=== PATIENT | female | born 1990 | race Caucasian/White ===

== ENCOUNTER 2018-10-27 10:34 | Emergency (ER) | payer OTHER ==
[2018-10-27 10:44] VITALS: BP 144/92; TEMP 97.8; BMI 37.0
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
== END 2018-10-27 12:38 | disposition home or self-care (01) ==
LOC: ED 10:34
DX: S16.1XXA Strain of muscle, fascia and tendon at neck level, initial encounter (principal); R07.89 Other chest pain; M25.512 Pain in left shoulder; K76.0 Fatty (change of) liver, not elsewhere classified; V89.2XXA Person injured in unspecified motor-vehicle accident, traffic, initial encounter
CPT/HCPCS: 99283

== ENCOUNTER 2018-12-15 20:01 | Inpatient (IN) ==
[2018-12-15 20:07] VITALS: BMI 36.8
[2018-12-15] MEDS ORDERED: SOLU-MEDROL 125 MG IVP STA (20:28)
--- NOTE | 2018-12-15 20:41 | ED.PDOC ---
General ED Provider: Dr. BINU PHILLIPS Chief Complaint: Sore Throat Stated Complaint: Sorethroat for few days. worse today. Left ear ache and neck swelling. Difficulty swallowing. Time Seen by Physician: 20:10 Mode of Arrival: Walk-In Information Source: Patient Nursing and Triage Documentation Reviewed and Agree: Yes Does patient meet sepsis criteria?: No System Inflammatory Response Syndrome: Not Applicable Sepsis Protocol: For patient's 13 years and over: Temp is 96.8 and below OR 101 and greater Pulse >90 BPM Resp >20/minute Acutely Altered Mental Status Are patient's symptoms suggestive of a new infection, such as: -Pneumonia -Skin, Soft Tissue -Endocarditis -UTI -Bone, Joint Infection -Implantable Device -Acute Abdominal Infection -Wound Infection -Meningitis -Blood Stream Catheter Infection -Unknown EENT Complaint Exam - Throat Complaint/Exam Onset/Duration: 5 days Symptoms Are: Still present Timimg: Constant Initial Severity: Mild Current Severity: Moderate Aggravating: Reports: Eating Associated Signs and Symptoms: Reports: Fever, Dysphagia, Chills. Denies: Drooling, Foreign body sensation, Cough, Wheezing, Hoarseness, Sinus discomfort , Nasal congestion, Difficulty breathing, Lethargy, Irritability, Decreased activity, Vomiting, Diarrhea, Decreased hearing, Ear drainage Related History: Denies: Similar Episode Uvula Midline: Yes Argelia-tonsillar Fluctuence: No Scarlatinaform Rash Present: No Lesions: Absent: Lip, Gums, Tongue, Buccal Mucosa Exanthem: Absent: Lip, Gums, Tongue, Buccal Mucosa Vesicles: Absent: Lip, Gums, Tongue, Buccal Mucosa, Pharynx Stridor Present: No Sinus Tenderness Present: No Tonsillar Hypertrophy Present: Yes Tonsillar Exudate Present: No Argelia-tonsillar Swelling Present: Yes Adenopathy Present: Yes Splenomegaly Present: No Differential Diagnoses: Laryngitis, Pharyngitis, Tonsillitis Review of Systems - Review Of Systems Constitutional: Reports: Fever Eyes: Reports: No symptoms Ears, Nose, Mouth, Throat: Reports: Ear pain, Throat pain Respiratory: Reports: No symptoms Cardiac: Reports: No symptoms GI: Reports: No symptoms : Reports: No symptoms Musculoskeletal: Reports: No symptoms Skin: Reports: No symptoms Neurological: Reports: No symptoms Endocrine: Reports: No symptoms Hematologic/Lymphatic: Reports: No symptoms All Other Systems: Reviewed and Negative Past Medical History - Past Medical History Previously Healthy: Yes Endocrine: Reports: None Cardiovascular: Reports: None Respiratory: Reports: None Hematological: Reports: None Gastrointestinal: Reports: None Genitourinary: Reports: None Neuro/Psych: Reports: None Musculoskeletal: Reports: None Cancer: Reports: None Last Menstrual Period: 12/15/18 Other Pertinent Past Medical History: Obesity - Surgical History General Surgical History: Reports: None - Family History Family History: Reports: Diabetes - Social History Smoking Status: Never smoker Hx Substance Use: No Alcohol Screening: None - Immunizations Tetanus Shot up to Date: Yes Physical Exam - Physical Exam Appearance: Ill-appearing, Obese Ill-appearing: Moderate Pain Distress: Moderate ENT: Ears normal, Nose normal, Erythema (uvular midline) Neck: Nonsupple (Left neck pain with lymphadenopathy) Respiratory: Airway patent, Breath sounds clear, Breath sounds equal, Respirations nonlabored Cardiovascular: RRR, Pulses normal, No rub, No murmur Musculoskeletal: Normal strength, ROM intact, No edema Skin: Warm Neurological: Sensation intact, Motor intact, Cranial nerves intact, Alert, Oriented Psychiatric: Anxious Interpretation - Radiology Interpretation Radiology Interpretation By: Radiologist Radiology Results: Positive (Tonsilar Swelling mostly on the left) Exam Interpreted: CT Scan Re-Evaluation - Re-Evaluation Time of Re-Evaluation: 23:40 Status: Improved Vital Signs Stable: Yes Pain Level: much improved able to open month. Still no stridor Appearance: NAD Lungs: Clear Skin: Warm and Dry Neuro: Alert and Oriented X3 CV: RRR Physician Notification - Case Discussed Physician Notified: Dr Diaz Time of Notification: 23:00 (accepted patient for admission, ) Critical Care Note - Critical Care Note Total Time (mins): 45 Course - Course Hematology/Chemistry: 12/15/18 20:48 12/15/18 20:48 Vital Signs: Temp Pulse Resp BP Pulse Ox 12/15/18 20:01 100.6 F H 100 H 20 136/94 H 98 Departure - Departure Time of Disposition: 23:55 Disposition: ADMITTED INPATIENT Discharge Problem: Streptococcal sore throat, Newly diagnosed diabetes Condition: Stable Pt referred to PMD for follow-up: Yes IPMP verified?: No Allergies/Adverse Reactions: Allergies adhesive Adverse Reaction (Verified 12/15/18 20:05) Home Medications: Ambulatory Orders 1 [No Reported Medications] 10/27/18 Disposition Discussed With: Patient, Family
[2018-12-15] MEDS ORDERED: ZOSYN 3.375 GM 3.375 GM in SODIUM CHLORIDE 50 ML IV STA (21:06)
[2018-12-15] MEDS ORDERED: SODIUM CHLORIDE 1,000 ML IV STA (21:48)
[2018-12-15] MEDS ORDERED: HUMULIN R SUBCUT STA (21:48)
--- NOTE | 2018-12-15 22:03 | CT ---
Exam: CT of the neck with contrast History: Left neck swelling Technique: [address] of the neck following intravenous contrast FINDINGS: Swelling of the pontine tonsils greater on the left. Low-density change centrally in the left palatine tonsil measures 1.1 x 1.3 cm without rim enhancement. Tonsillar swelling of the school commissioner ior nasopharynx. The epiglottis is normal. The trachea is normal. Normal cervical esophagus and pr evertebral soft tissues. Parapharyngeal fat shows some inflammatory stranding on the left. Reactive lymph nodes bilaterally with maximum diameter on the left measuring 1.4 cm short axis. Normal subma ndibular and parotid glands. Normal thyroid. Lung apices are clear. No acute findings of the skele ton. Impression: 1. Tonsillar swelling greatest on the left. There is central low density in the left palatine tonsi l suggesting necrosis without rim enhancing abscess. Left parapharyngeal inflammation is present.
[2018-12-15] MEDS ORDERED: TYLENOL PO PRN (23:34)
[2018-12-15] MEDS ORDERED: MORPHINE 2 MG/ML SYRINGE IVP PRN (23:34)
[2018-12-15] MEDS ORDERED: ZOFRAN 4 MG/2 ML IVP PRN (23:34)
--- NOTE | 2018-12-15 23:47 | PCM ---
- Chief Complaint Chief Complaint: Sore throat 2-3 days worsening, left earache, neck swelling, difficulty swallowing. Hyperglycemia, new onset diabetes. - History of Present Illness History of Present Illness: 28 yo female walked into ER 20:10 12/15/18 with sore throat, fever, left ear ache , neck swelling, trouble swallowing. Febrile temp 100.6, pulse 100, rr 20, BP 136/94 supports SIRS and oropharyngeal infection supports Sepsis. Labs showed WBC 20.49, hgb 14.2, hct 42.7. Sodium 135.6, K+ 3.87, CL 98.1, c02 28.1. BUN 4.5 , cr 0.40 with glucose 300.5. ER note suggested patient did not meet SIRS/ Sepsis. Ear throat pain, strep was + in ER. PMHx polydipsia, polyphagia, polyuria. Never smoker. CT of the soft tissues of the neck suggested swelling of the pontin tonsils L>R. Low density changes centrally within the left palatine tonsils 1.1x1.3cm w/o rim enhancement. Tonsillar swelling fo the posterior nasopharynx. Epiglottis normal, trachea normal. Normal prevertebral soft tissues. Parapharyngeal fat shows stranding on left. reactive LN L>>R. normal parotid glands. Dr. Betancur contacted me at 23:20 and discussed the case with me. I asked about midline uvula was informed difficulty opening mouth, swelling, no stridor. I asked about parapharyngeal abscess/james and asked for opinon. I asked about the glucose, asked what the a1c was and was informed that the patient a1c was 10.96, glucose 300.5, negative. New onset diabetes. I asked more about the neck swelling as DM is most common predisposing factor for abscess. CT today did not show an air or fluid filled center. NO enhancement, no current evidence of abscess, but does have e/o cellulitic/infectious process. I discussed necrotizing fascitis, cellulitis as still possible. With strep + status Necrotizing facitis is concerning. I asked about platysma and was told there is some neck swelling. Again there are no current abscesses nor presence of gas within soft tissues. May re-image in 6- 12 hours if needed. Gas presence would suggest necrotizing fascitis. I asked about swelling and it was more invovled with the LN than the actual neck musculature and not along SCM (bezold). Ct did not support any mastoid/middle ear involvement nor of the musculature. She was given zosyn as well as NS 1000 cc bolus and 7 units of insulin. She was then set up to have lovenox 40subuct, rocephin 1 Gram daily, ms sulfate 2mg q 4hours, accucheck 0630,1100,1700,2100. I have added cpeptide, SHANA abs and insulin for am. PResented unable to open mouth. Steroids/abx did help her to open mouth and to talk. Boyfriend dale has garbled voice, tonsillar hypertrophy and pain as well. He has been gargling everclear due to the pain. Noted he probably had strep too. Patient tested +. She has swelling along the left side of the jaw. I have discussed with her at length that clinically and radiographically I was concerned about abscess/cellulitis. Blood cultures were collected. - Review of Systems Constitutional: fever, weakness, fatigue, loss of appetite. No: chills, sweats , other Eyes: No: blurred vision, double-vision, discharge, itching, pain, redness, photophobia, other Ears: pain. No: bleeding, drainage, ringing, hearing loss, other Nose: No: bleeding, congestion, discharge, other Throat: pain, swelling, voice change Mouth: pain, swelling. No: bleeding, other Respiratory: No: cough, shortness of air, wheeze, hemoptysis, pain with breathing, other Cardiovascular: No: chest pain, left arm pain, diaphoresis, PND, orthopnea, edema, palpitations, syncope, other Gastrointestinal: No: abdominal pain, other, nausea, vomiting, diarrhea, melena , hematemesis, hematochezia, dysphagia, constipation Genitourinary: dysuria, frequency. No: hematuria, incontinence, flank pain, vaginal discharge, abnormal bleeding, pelvic pain, other Neurological: headache, speech difficulty. No: other, dizziness, seizure, numbness, weakness, problems with walking, tremor, fainting Musculoskeletal: No: pain, swelling in joints, other Skin: No: rash, pruritus, lacerations, wounds, bruising, other Immunology: No: itching, frequent infections Hematology: No: easy bruising, easy bleeding Endocrine: weight changes, excessive thirst, excessive hunger, polyuria - Past Medical History Past Medical History: control. . Healthy, no reported illness. Obesity BMI 36.8. - Past Surgical History Past Surgical History: None - Allergies Allergies/Adverse Reactions: Allergies Allergy/AdvReac Type Severity Reaction Status Date / Time adhesive AdvReac Verified 12/15/18 20:05 - Medications Medications: Medications Generic Name Dose Route Start Last Admin Trade Name Freq PRN Reason Stop Dose Admin Acetaminophen 650 mg 12/15/18 23:34 Tylenol PO Q4H PRN Fever > 102 Enoxaparin Sodium 40 mg 12/16/18 09:00 Lovenox SUBCUT DAILY NABEEL Ceftriaxone Sodium 1 gm/ 50 mls @ 75 mls/hr 12/16/18 09:00 Sodium Chloride IV 12/19/18 08:59 DAILY [facility] Insulin Human Regular 0 - 8 unit 12/15/18 23:34 Humulin R SUBCUT PRN PRN Hyperglycemia Protocol Morphine Sulfate 2 mg 12/15/18 23:34 Morphine 2 Mg/Ml Syringe IVP Q4H PRN Severe Pain Ondansetron HCl 4 mg 12/15/18 23:34 Zofran 4 Mg/2 Ml IVP Q6H PRN Nausea / Vomiting Sodium Chloride 1 syr 12/15/18 20:36 12/15/18 22:18 Saline Flush IVF 1 syr PRN PRN Administration To flush IV - Family History Past Family History: Mother DM, HTN father. Brother lives in [place]. No children. [place] ancestry. - Social History Past Social History: Lives with boyfriend dale. Geoff IUD. LMP 1 month ago. No tobacco, no drugs, no ETOH. Works as craft manager. - Body Composition Height: 5 ft 1 in Weight: 195 lb Body Mass Index (BMI): 36.8 - Physical Examination HEENT: Constitutional: Appearance-Mild distress pain present, limited opening of mouth , Consistent with stated age. Orientation- Oriented x 3, alertGait-Normal pace, normal arm movement. Build and Nutrition-[obese female] General- Patient is pleasant and cooperative with the interview and exam. Integumentary: General-No rashes, ulcers or lesions. Palpation- Normal skin moisture/turgor. Skin is warm to touch, appropriate. Capillary refill is normal bilateral Upper and lower extremity. Head/Neck: Head- normocephalic and atraumatic. Neck- with visible/palpable lumps lateral neck, along superior SCM, along lower angle of jaw within the anterior zone 2 space of the neck. Tender anterior cervical LN on left. Palpation- No bony tenderness about head/neck along frontal, occipital, temporal , parietal, mastoid, jawline, zygoma, orbit or any other location. NO temporal artery tenderness. No TMJ tenderness. Neck Supple. NO trismus. Able to open mouth. Thyroid-No thyromegaly, no nodules Malampati IV. Tongue blade to see the posterior pharynx. Uvula deviated to the right. Peritonsillar erythema, palatine arch erythema, edema L>R, migration of left toward right. Patient noted markedly better by the time I saw her. NO trismus on examination. Concern for parapharyngeal vs peritonsillar abscses. Pain is reduced Tender LN along left anterior neck. Eye: Bilaterally PERRLA, EOMI. No discharge. Upper and lower eyelids are normal. Sclera/conjunctiva normal without discharge. Cornea is normal and clear. Lens is normal. Eyeball appears normal. No ciliary flushing, no conjunctival injection. ENMT: Pinna- normal without tenderness or erythema. External auditory canal Left- normal without erythema or discharge, no excessive cerumen. External auditory canal Right-normal without erythema or discharge, no excessive cerumen. TM left- Forte/pearly, normal light reflex and anatomy TM Right- Forte/ pearly, normal light reflex and anatomy Hearing Assessment-normal to conversational speech. Nose and sinus- No sinus tenderness along frontal/ maxillary region. External appearance normal and midline. Nares- bilateral quiet airflow, no discharge. Nasal mucosa- No bleeding noted and no ulcerations observed. [place], moist. Turbinates non boggy. Lips- normal color, moist without cracks/lesions Oral Cavity/Palate- hard/soft palate intact without lesions, oral mucosa pink and moist. Dentition assessed avg, no obvious concerns, Tongue normal midline. Oropharynx- pharyngeal erythema, Uvula not midline, displaced rightward, No post nasal drip. + tonsilar exudate. Salivary glands- Non tender to palpation Parotid normal. Parotid ducts normal. CHEST/LUNG: Inspection- symmetric chest wall no pectus deformity. Normal effort , no distress, no use of accessory muscles. Palpation- nontender sternum, ribline. No abnormal pulsations. Auscultation- Breath sounds normal throughout all lung buckley. Normal tracheal sounds, Normal bronchial sounds overlying sternum, Bronchovessicular sounds normal between scapulae posteriorly, Normal vessicular breath sounds heard throughout periphery. Lungs are clear today. Adventitious sounds- No wheezes, rales, rhonchi. CARDIOVASCULAR: Carotid artery- normal, no bruits or abnormal pulsations. Jugular vein- no pulsations. Palpation/Percussion- Normal PMI, no palpable thrill Auscultation- Regular rate and rhythm. No murmur noted in sitting, supine positions. Extremities- no digital clubbing, cyanosis, edema, increased warmth. ABDOMEN: Inspection- normal and no visible pulsations. Normal contour. Auscultation- Bowel sounds normal, no abdominal bruits. Palpation/Percussion- soft, non-tender, no rebound tenderness, no rigidity (guarding), no jar tenderness, no masses. Liver-no hepatomegaly, Spleen no splenomegaly, Hernias - none. Rectal not examined. Peripheral Vascular: Upper extremity Left- Normal temperature with pink nailbeds and no ulcerations. Upper extremity Right- Normal temperature with pink nailbeds and no ulcerations. Lower extremity- Normal temperature with pink nailbeds and no ulcerations. DP pulses 2+ bilaterally. Pedal hair intact. Normal capillary refill. Edema- No edema. Musculoskeletal: Generalized-No generalized swelling or edema of extremities, no digital clubbing or cyanosis, neurovascularly intact all four extremities. Upper extremity- Symmetrical posture. No visible deformity. Normal sensation along medial and lateral upper extremity proximally and distally. NO tenderness overlying shoulder, lateral/medial epicondyle. [employer] 5/5 and strength 5/5 bilateral UE. Elbow palpated, no tenderness overlying olecranon. Normal supination, pronation to active/passive ROM and to resisted rotation. Bicep insertion/tricep insertion appear normal without obvious pathology. Rotator cuff evaluated and intact. Normal wrist ROM bilaterally. Normal hand movement, intrinsic muscles of hands normal. No tenderness to palpation of hands/wrists/ elbows. Lower extremity- Hip: Not tender to palpation, no pain, no swelling, edema or erythema of surrounding tissue, normal strength and tone. Normal appearing hip ROM bilaterally without pain. Knee: Knee ROM normal. No tenderness overlying trochanters, no tenderness about patella, quad tendon, patellar tendon. No tenderness at tibial tuberosity. Ankle: normal ROM not tender to palpation along medial/lateral malleolus. Foot: Normal movement of toes, no tenderness bilateral feet/toes. Normal foot type. Spine/Ribs- No deformities, masses or tenderness, no known fractures, normal strength, Normal ROM. Normal stability No tenderness along C/T/L spine. Normal appearing ROM about spine. Neurological: General- Moves all 4 extremities symmetrically. Symmetrical face and body posture. Cranial nerves- individually evaluated II-XII and intact. PERRLA, Normal EOMI, visual/special senses appear intact, Face is symmetrical and normal sensation/movement, normal tongue, normal strength/posture of neck musculature. Reflexes- intact with DTR 2+ patellar, Achilles, bicep, brachial, tricep. Ankle clonus normal with 2 beats. Strength- 5/5 bilateral UE and LE. Soft touch- intact bilateral UE and LE. Temperature sensation- intact bilateral UE and LE. Neuropsych: Oriented- Person, place, time. (AAOx3), Mood/affect- normal and congruent. Able to articulate well. Speech-Normal speech, normal rate, normal tone, normal use of language, volume and coherence. Thought content- normal with ability to perform basic computations and apply abstract thought/reason. Associations- intact, no SI/HI, no hallucinations, delusions, obsessions. Judgment/insight- Appropriate. Memory-Recall intact, remote and recent memory intact. Knowledge- Age appropriate fund of knowledge, concentration and attention span normal. Lymphatic: Head/Neck- Left side anterior cervical LN tender to palpation and enlarged, zone 2. Prominetn swelling along level II, III, IV and 1B. . Axillary - normal size and non tender to palpation. Femoral and Inguinal- normal size and non tender to palpation. - Lab/Tests/Diagnostic Imaging Lab/Tests/Diagnostic Imaging: Laboratory Last Values WBC 20.49 K/ul (4.6-10.2) H 12/15/18 20:48 RBC 5.36 10^6/ul (4.20-5.40) 12/15/18 20:48 Hgb 14.2 g/dl (12.0-16.0) 12/15/18 20:48 Hct 42.7 % (37.0-47.0) 12/15/18 20:48 MCV 79.7 fl (81.0-99.0) L 12/15/18 20:48 MCH 26.5 pg (27.0-31.0) L 12/15/18 20:48 MCHC 33.3 (31.8-35.4) 12/15/18 20:48 RDW Coeff of Dejan 12.6 % (11.6-14.8) 12/15/18 20:48 Plt Count 340 10^3/uL (140-440) 12/15/18 20:48 Immature Gran % (Auto) 0.9 % (0.0-5.0) 12/15/18 20:48 Neut % (Auto) 79.8 12/15/18 20:48 Lymph % (Auto) 12.9 (10.0-50.0) 12/15/18 20:48 [place] % (Auto) 4.5 (0-10) 12/15/18 20:48 Eos % (Auto) 1.7 % (0.0-7.0) 12/15/18 20:48 Baso % (Auto) 0.2 % (0.0-3.0) 12/15/18 20:48 Immature Gran # (Auto) 0.2 (0.0-1.0) 12/15/18 20:48 Neut # (Auto) 16.3 K/ul (2.0-6.9) H 12/15/18 20:48 Lymph # (Auto) 2.7 K/uL (0.60-3.4) 12/15/18 20:48 [place] # (Auto) 0.9 K/uL (0.4-2.0) 12/15/18 20:48 Eos # (Auto) 0.4 K/ul (0.0-0.7) 12/15/18 20:48 Baso # (Auto) 0.1 K/uL (0-0.2) 12/15/18 20:48 Sodium 135.6 mmol/L (134.5-145) 12/15/18 20:48 Potassium 3.87 mmol/L (3.5-5.1) 12/15/18 20:48 Chloride 98.1 mmol/L (98-107) 12/15/18 20:48 Carbon Dioxide 28.1 mmol/L (22-30.0) 12/15/18 20:48 Anion Gap 13.27 12/15/18 20:48 BUN 4.5 mg/dL (7-17) L 12/15/18 20:48 Creatinine 0.40 mg/dL (0.60-1.30) L 12/15/18 20:48 Estimated GFR (MDRD) 189.00 mL/min 12/15/18 20:48 BUN/Creatinine Ratio 11.25 12/15/18 20:48 Glucose 300.5 mg/dL (74-106) H 12/15/18 20:48 Hemoglobin A1c 10.96 (4.0-6.0) H 12/15/18 20:45 Calcium 9.18 mg/dL (8.4-10.2) 12/15/18 20:48 Total Bilirubin 0.61 mg/dL (0.2-1.3) 12/15/18 20:48 AST 27.9 U/L (14-36) 12/15/18 20:48 ALT 29.8 U/L (0-35) 12/15/18 20:48 Alkaline Phosphatase 110.5 U/L (38-126) 12/15/18 20:48 Total Protein 9.04 g/dL (6.3-8.2) H 12/15/18 20:48 Albumin 4.25 g/dL (3.5-5.0) 12/15/18 20:48 Globulin 4.79 12/15/18 20:48 Albumin/Globulin Ratio 0.88 12/15/18 20:48 Serum , Qual Negative (NEGATIVE) 12/15/18 20:48 CT scan: Tonsillar swelling greatest on the left. Ther eis central low density in the left palatine tonsil suggesting necrosis without rim enhancing abscess. Left parapharyngeal inflammation is present. Personally called radiology 1am: Image 31 axial:addendum: In anterior aspect of the left palataine tonsil 3.3 x 3.7 mm low density area with rim enhancement which could represent small abscess. Additional finding was discussed with ER physician at 0100 hours 12/16/18. That was actually with hospitalist and not ER provider. Personally discussed case with DR. Betancur ER, Radiology, cement conveyor operator ENT through , transfer line and reviewed images personally/directly. - Plan Plan: Peritonsilar abscess: abscesses are more common in young adults. Average age is 25 yr with >65% of patients being 20-40 yr old. DDX considered include parapharyngeal abscess, Cellulitis, necrotizing fasciitis. No gas, no abscess seen by radiology on contrast enhanced CT. Discussed more serious anterior neck lesions with Er provider James/karma and I was assured that these were not present. I arrived and evaluated patient, noted prominent left sided tonsillar hypertrophy, anterior movement of the tonsil in relation to the right, rightward deviation of the uvula, prominent swelling inferior to the angle of the jaw and was concerned that this was more than was reported. I contacted and talked with cement conveyor operator ENT who asked if patient has ability to open mouth. I noted that she did not when presenting to ER but dose of zosyn and steroid have helped and she can open jaw now. He noted if able to open mouth she did not have abscess and it was not an emergency. Noted I could transfer if desired but it is not an emergency and abx and steroids are what she needs. He told me I was the one evaluating her but an open mouth, open airway are present. He asked about WBC I noted 20. Febrile. I looked at the images personally, noted L>R tonsilar hypertrophy and then called Radiologist to discuss further and requested a review of axial images. It was felt that there was an abscess on image 31 ~3mm rim enhancing lesion c/w abscess. Addendum was made to the report noting that he had talked with ER doctor, but that should have read hospitalist and not ER doctor. I had a long discussion with patient william and with boyfriend william, who also has s/sx of strep about the options that were available. Option 1 wait 6-12 hours and assess system/severity/problems. She noted she was feeling better, throat pain improving, swelling improving, able to open mouth now, which was not present at time of presentation. She liked this option. Option 2 was transfer to facility with ENT for further evaluation. She noted that if it worsens she wants to do that. called back to ask me about the transfer. I discussed with them the above and patient wishes to remain here. Febrile tonsillar hypertrophy with peritonsilar abscess. She has no prevertebral space process. - Admit inpatient status. - Vitals q shift - Rocephin 1 gram daily - Change to augmentin when able - CBC/CMP in am. - Monitor 6-12 hours for changes. - unasyn 3g IV q 6 hours start at 0600. Strep Positive: Will treat with unasyn q 6 hours. D/C rocephin. Await cultures. Consider augmentin 875-125 BID at discharge. New Onset diabetes: A1C >10.0. I will check C-peptide, [id number], Insulin in am. She is on steroids. 7 units given in ER. She was then given 0-8 units humulin regular correctional. Will see how many units she needs over next 24 hours. I will start lantus 10 and likely try to add steglatro and metformin for her and then back down the lantus. I want to see about ?HORTENSIA first, however. - CMp.CBC in am. - Correctional insulin. - Lantus 10units to be given. - C-peptide in am - INsulin level in am - Add potassium to fluids. - Keep K+ at goal 4-5. BMI 36.8: Discussed the federal guidelines suggest a healthy goal BMI of 18.5- 24.9 for people 18-65 and 23-30 for people age 65 and older. Overweight is considered BMI 25-30, Obesity 30-40 and Morbid obesity is defined as >100 lb overweight or BMI >40. With a BMI above goal, it is recommended to utilize a diet/exercise program to get back into the appropriate range. Consider referral to data processing auditor. For BMI >40 consider referral to bariatrics. If not already monitoring intake. I would recommend at least to keep a food diary. Document everything that is consumed into a food diary. Studies have shown that patients can lose up to 2x the weight by keeping track of foods. Offered handout on weight loss techniques. Apps that may be of benefit include [employer], Lose it. Regular exercise encouraged. Start with walking 5-10 minutes at a pace that is difficult to carry a conversation. If chest pain/SOA stop and f/u in office. DVT prophy: Hold lovenox for now in case abscess worsens and surgery becomes option. -MARC/SCD for now. Diet: NPO for now in case surgery becomes an option. Maintenance 120-140 ml. - Will use 120ml NS + 10meq K+Cl- Disposition: Admission for patient 23:40-01:35. Talked with ER doctor x 2 personally, Radiologist personally and had Report addended with information about image 31 axial that demonstrated the left palatine tonsil rim enhancing lesion that may be an abscess. Talked with cement conveyor operator ENT through . Talked with transfer line again. Talked with boyfriend Dale who is likely currently sick with strep. He will actually see me in clinic in 7 hours. The patient has decided to stay at [facility] for now. Will reassess 6-8am with rounding. Prolonged evaluation, numerous discussions with providers as listed above [id number].
[2018-12-16] MEDS: HUMULIN R SUBCUT PRN ×5 (01:13→20:42)
[2018-12-16] MEDS ORDERED: LANTUS SUBCUT STA (01:32)
[2018-12-16] MEDS ORDERED: POTASSIUM CHLORIDE 10 MEQ VIAL 10 MEQ in SODIUM CHLORIDE 1,000 ML IV SCH (02:00)
[2018-12-16] MEDS ORDERED: POTASSIUM CHLORIDE 10 MEQ VIAL IV ONE ×3 (02:10→23:24)
[2018-12-16] MEDS: POTASSIUM CHLORIDE 10 MEQ VIAL 10 MEQ in SODIUM CHLORIDE 1,000 ML IV SCH ×3 (02:17→23:26)
[2018-12-16] MEDS ORDERED: AMPICILLIN SODIUM ONE (05:49)
[2018-12-16] MEDS: UNASYN 3 GM in SODIUM CHLORIDE 100 ML IV SCH ×4 (06:12→23:30)
[2018-12-16] MEDS ORDERED: ROCEPHIN 1 GM in SODIUM CHLORIDE 50 ML IV SCH (09:00)
[2018-12-16] MEDS ORDERED: LOVENOX SUBCUT SCH (09:00)
--- NOTE | 2018-12-16 20:31 | PCM.PROG ---
Subjective: 28 yo WF HD #2 admitted with new onset diabetes, Strep + tonsillar hypertrophy and left sided tonsillar abscess. Patient is now on unasyn q 6 hours today is day 08/07 for antibiotics. Will plan to d/c her 12/17/18 with augmentin 875/125 po BID x 10 days. She had WBC reduced from 20.49 to 18.52. She had normal hgb 13.9, mcv is low at 79.5, RDW is normal. Plt are normal at 327. Chem panel this am showed normal sodium 138.2, normal cl 101.2, k+ 4.13, BUN 5.6, Cr 0.30. Glucose 333.1. Calcium 8.81. A1C returned 10.96. Temp since admit has been afebrile 97.6-98.2. Pulse 70-86. BP has been stable at 119/85, 123/85, 130/82, 114/82. RR 16-20. O2 98-100% on RA. NPO status, I held lovenox just in case. She had SR/ST on telemetry. Talked with overnight nurse and she has been doing okay. She has had several voids, no output recorded. According to the I+O she has had 9 voids in 24 hours. Accucheck for 12/16/18 265, 331,193, 212, 231. I rounded on her at 8 am, 12pm and 1900 today. I allowed her to eat lunch and dinner and she consumed 75% of each. Monitor accuchecks. Today she has had 12/03/ /4/4 units at 01:13, 06:09, 12:23, 17:50 and 20:42. I will stop the steroids for now. Continue Unasyn 3Gram Q6. REVIEW OF SYMPTOMS: (Positives bolded) General: weight loss, fever (resolved), chills, night sweats, fatigue, appetite loss (better) HEENT: blurry vision, eye pain, eye discharge, dry eyes, decreased vision, sore throat tinnitus, bloody nose, hearing loss, sinus pain/pressure, ear pain/ pressure. Respiratory: shortness of breath, cough, hemoptysis, wheezing, pleurisy, Cardiovascular: chest pain, PND, palpitation, edema, orthopnea, syncope, swelling of extremities Gastro: Nausea, vomiting, diarrhea, hematemesis, abdominal pain, constipation Genito: hematuria, dysuria, glycosuria, hesitancy, frequency, incontinence [place]: Arthralgia, myalgia, muscle weakness, joint swelling, NSAID use Skin: rash, pruritis, sores, nail changes, skin thickening, change in wart/mole , itching, rash, new lesions, pruritus, nail changes Neuro: Migraine, numbness, ataxia, tremor, vertigo, weakness, memory loss, Irritability, dizziness Endocrine: excessive thirst, polyuria, cold intolerance, heat intolerance, goiter Psychiatric: depression, anxiety, anti-depressants, alcohol abuse, drug abuse, insomnia, change in sleep pattern and mood changes Heme/lymph: easy bruising, bleeding gums, blood clots, swollen glands, lymphedema, Allergic/immune: allergic rhinitis, hay fever, asthma, hives Objective: Vital Signs - 24 hr 12/16/18 12/16/18 12/16/18 00:07 02:00 05:34 Temperature 98.2 F 97.6 F 98 F Pulse Rate 85 80 87 Respiratory 16 18 18 Rate Blood Pressure 119/85 123/85 O2 Sat by Pulse 97 98 99 Oximetry 12/16/18 14:00 Temperature 98 F Pulse Rate 70 Respiratory 20 Rate Blood Pressure 130/82 O2 Sat by Pulse 100 Oximetry Constitutional: Appearance-NO distress, pain present but improving, limited opening of mouth persists, Consistent with stated age. Orientation- Oriented x 3 , alert. Asleep on entry, easily awoken. Boyfriend dale in room. Build and Nutrition-[obese female] General- Patient is pleasant and cooperative with the interview and exam. Integumentary: General-No rashes, ulcers or lesions. Palpation- Normal skin moisture/turgor. Skin is warm to touch, appropriate. Capillary refill is normal bilateral Upper and lower extremity. Head/Neck: Neck- with visible/palpable lumps lateral neck, along superior SCM, along lower angle of jaw within the anterior zone 2 space of the neck. Tender anterior cervical LN on left. This has not expanded. She appears to be healing/ resolving. Palpation- No bony tenderness about head/neck along frontal, occipital, temporal, parietal, mastoid, jawline, zygoma, orbit or any other location. NO temporal artery tenderness. No TMJ tenderness. Neck Supple. NO trismus. Able to open mouth more today. Thyroid-No thyromegaly, no nodules Malampati IV. Tongue depressor needed to see the posterior pharynx. Uvula deviated to the right. Peritonsillar erythema, palatine arch erythema, edema L>R , migration of left toward right. Patient noted markedly better by the time I saw her. NO trismus on examination. Concern for parapharyngeal vs peritonsillar abscess. Pain is reduced now not having Tender LN along left anterior neck. ENMT: Nares- bilateral quiet airflow, no discharge. Nasal mucosa- No bleeding noted and no ulcerations observed. [place], moist. Turbinates non boggy. Lips- normal color, moist without cracks/lesions Oral Cavity/Palate- hard/soft palate intact without lesions, oral mucosa pink and moist. Dentition assessed avg, no obvious concerns, Tongue normal midline. Oropharynx- pharyngeal erythema persists, Uvula not midline, displaced rightward, No post nasal drip. + tonsilar exudate. Salivary glands- Non tender to palpation Parotid normal. Parotid ducts normal. CHEST/LUNG: Inspection- symmetric chest wall no pectus deformity. Normal effort , no distress, no use of accessory muscles. Palpation- nontender sternum, ribline. No abnormal pulsations. Auscultation- Breath sounds normal throughout all lung buckley. Normal tracheal sounds, Normal bronchial sounds overlying sternum, Bronchovessicular sounds normal between scapulae posteriorly, Normal vessicular breath sounds heard throughout periphery. Lungs are clear today. Adventitious sounds- No wheezes, rales, rhonchi. CARDIOVASCULAR: Palpation/Percussion- Normal PMI, no palpable thrill Auscultation- Regular rate and rhythm. No murmur noted in sitting, supine positions. Extremities- no digital clubbing, cyanosis, edema, increased warmth. ABDOMEN: Inspection- normal and no visible pulsations. Normal contour. Auscultation- Bowel sounds normal, no abdominal bruits. Palpation/Percussion- soft, non-tender, no rebound tenderness, no rigidity (guarding), no jar tenderness, no masses. Peripheral Vascular: Upper extremity Left- Normal temperature with pink nailbeds and no ulcerations. Upper extremity Right- Normal temperature with pink nailbeds and no ulcerations. Lower extremity- Normal temperature with pink nailbeds and no ulcerations. DP pulses 2+ bilaterally. Pedal hair intact. Normal capillary refill. Edema- No edema. Musculoskeletal: Generalized-No generalized swelling or edema of extremities, no digital clubbing or cyanosis, neurovascularly intact all four extremities. Neurological: General- Moves all 4 extremities symmetrically. Symmetrical face and body posture. Cranial nerves- individually evaluated II-XII and intact. PERRLA, Normal EOMI, visual/special senses appear intact, Face is symmetrical and normal sensation/movement, normal tongue, normal strength/posture of neck musculature. Neuropsych: Oriented- Person, place, time. (AAOx3), Mood/affect- normal and congruent. Able to articulate well. Speech-Normal speech, normal rate, normal tone, normal use of language, volume and coherence. Thought content- normal with ability to perform basic computations and apply abstract thought/reason. Associations- intact, no SI/HI, no hallucinations, delusions, obsessions. Judgment/insight- Appropriate. Memory-Recall intact, remote and recent memory intact. Knowledge- Age appropriate fund of knowledge, concentration and attention span normal. Lymphatic: Head/Neck- Left side anterior cervical LN tender to palpation and enlarged, zone 2. Prominetn swelling along level II, III, IV and 1B. . Axillary - normal size and non tender to palpation. Femoral and Inguinal- normal size and non tender to palpation. Laboratory Last Values WBC 18.52 K/ul (4.6-10.2) H 12/16/18 05:10 RBC 5.17 10^6/ul (4.20-5.40) 12/16/18 05:10 Hgb 13.9 g/dl (12.0-16.0) 12/16/18 05:10 Hct 41.1 % (37.0-47.0) 12/16/18 05:10 MCV 79.5 fl (81.0-99.0) L 12/16/18 05:10 MCH 26.9 pg (27.0-31.0) L 12/16/18 05:10 MCHC 33.8 (31.8-35.4) 12/16/18 05:10 RDW Coeff of Dejan 12.5 % (11.6-14.8) 12/16/18 05:10 Plt Count 327 10^3/uL (140-440) 12/16/18 05:10 Immature Gran % (Auto) 1.1 % (0.0-5.0) 12/16/18 05:10 Neut % (Auto) 91.0 12/16/18 05:10 Lymph % (Auto) 7.2 (10.0-50.0) L 12/16/18 05:10 [place] % (Auto) 0.5 (0-10) 12/16/18 05:10 Eos % (Auto) 0.0 % (0.0-7.0) 12/16/18 05:10 Baso % (Auto) 0.2 % (0.0-3.0) 12/16/18 05:10 Immature Gran # (Auto) 0.2 (0.0-1.0) 12/16/18 05:10 Neut # (Auto) 16.9 K/ul (2.0-6.9) H 12/16/18 05:10 Lymph # (Auto) 1.3 K/uL (0.60-3.4) 12/16/18 05:10 [place] # (Auto) 0.1 K/uL (0.4-2.0) L 12/16/18 05:10 Eos # (Auto) 0.0 K/ul (0.0-0.7) 12/16/18 05:10 Baso # (Auto) 0.0 K/uL (0-0.2) 12/16/18 05:10 Sodium 138.2 mmol/L (134.5-145) 12/16/18 05:10 Potassium 4.13 mmol/L (3.5-5.1) 12/16/18 05:10 Chloride 101.2 mmol/L (98-107) 12/16/18 05:10 Carbon Dioxide 24.7 mmol/L (22-30.0) 12/16/18 05:10 Anion Gap 16.43 12/16/18 05:10 BUN 5.6 mg/dL (7-17) L 12/16/18 05:10 Creatinine 0.30 mg/dL (0.60-1.30) L 12/16/18 05:10 Estimated GFR (MDRD) 263.00 mL/min 12/16/18 05:10 BUN/Creatinine Ratio 18.66 12/16/18 05:10 Glucose 333.1 mg/dL (74-106) H 12/16/18 05:10 Hemoglobin A1c 10.96 (4.0-6.0) H 12/15/18 20:45 Calcium 8.81 mg/dL (8.4-10.2) 12/16/18 05:10 Total Bilirubin 0.61 mg/dL (0.2-1.3) 12/15/18 20:48 AST 27.9 U/L (14-36) 12/15/18 20:48 ALT 29.8 U/L (0-35) 12/15/18 20:48 Alkaline Phosphatase 110.5 U/L (38-126) 12/15/18 20:48 Total Protein 9.04 g/dL (6.3-8.2) H 12/15/18 20:48 Albumin 4.25 g/dL (3.5-5.0) 12/15/18 20:48 Globulin 4.79 12/15/18 20:48 Albumin/Globulin Ratio 0.88 12/15/18 20:48 Serum , Qual Negative (NEGATIVE) 12/15/18 20:48 (1) Peritonsillar abscess Status: Acute Code(s): J36 - PERITONSILLAR ABSCESS SNOMED Code(s): 80061239 (2) Newly diagnosed diabetes Status: Acute Code(s): E11.9 - TYPE 2 DIABETES MELLITUS WITHOUT COMPLICATIONS SNOMED Code(s): 650689281 (3) Streptococcal sore throat Status: Acute Code(s): J02.0 - STREPTOCOCCAL PHARYNGITIS SNOMED Code(s): 53543355 (4) BMI 36.0-36.9,adult Status: Acute Code(s): Z68.36 - BODY MASS INDEX (BMI) 36.0-36.9, ADULT SNOMED Code(s): 575296289 Plan: Peritonsilar abscess: Doing well on Unasyn. pain is improving, less erythema and edema about posterior pharynx. She was feeling better, throat pain improving , swelling improving, able to open mouth now, eating and tolerating PO. She is able to drink. No trismus, no sniffing, no tripod, swelling is improving. - Admit inpatient status plan d/c 12/17/18. - Vitals q shift - Unasyn to continue today, Change to augmentin when able - CBC/CMP in am. - Monitor 6-12 hours for changes. - unasyn 3g IV q 6 hours start at 0600. Strep Positive: Will treat with unasyn q 6 hours. D/C rocephin. Await cultures. Change to augmentin 875-125 BID at discharge. New Onset diabetes: A1C >10.0. I have checked C-peptide, [id number], Insulin and pending. Steroids have been stopped. She was then given 0-8 units humulin regular correctional. Will see how many units she needs over next 24 hours. I will start lantus 10 and likely try to add steglatro and metformin for her and then back down the lantus. I will d/c her on 15 units of lantus, steglatro 5 and start to advance metformin. R/B/A to insulin d/w patient/boyfriend today. Her mother has DM and she is aware of need for insulin. We will work on showing her the pen tomorrow. Continue insulin lantus 10 units and regular insulin for correction. - CMp.CBC in am. - Correctional insulin. - Lantus 10units to be given daily - C-peptide in am - INsulin level in am - Keep K+ at goal 4-5. BMI 36.8: Discussed the federal guidelines suggest a healthy goal BMI of 18.5- 24.9 for people 18-65 and 23-30 for people age 65 and older. Overweight is considered BMI 25-30, Obesity 30-40 and Morbid obesity is defined as >100 lb overweight or BMI >40. With a BMI above goal, it is recommended to utilize a diet/exercise program to get back into the appropriate range. Consider referral to nursing associate. For BMI >40 consider referral to bariatrics. If not already monitoring intake. I would recommend at least to keep a food diary. Document everything that is consumed into a food diary. Studies have shown that patients can lose up to 2x the weight by keeping track of foods. Offered handout on weight loss techniques. Apps that may be of benefit include [employer], Lose it. Regular exercise encouraged. Start with walking 5-10 minutes at a pace that is difficult to carry a conversation. If chest pain/SOA stop and f/u in office. DVT prophy: MARC/SCD for now. Diet: Diabetic ADA 1800 kcal diet. - Continue Will use 120ml NS + 10meq K+Cl- Disposition: Rounding today 35 minutes in discussion of the abscess as well as insulin/diabetes. Reviewed labs with her, reviewed the overnight tele, reviewed plan. Reassessed her at lunchtime and after clinic today and she continued to improve throughout the day. She wants to d/c home tomorrow as she works tomorrow 2 pm. I discussed this should be reasonable. Plan to d/c her on augmentin 875/125 PO BID. She agreed with plan. D/C on 15 units lantus, steglatro 5mg and metformn start 500 QHS x 1 week. F/U with me in office in 1 week. I gave her and boyfriend a business card.
[2018-12-17] MEDS: UNASYN 3 GM in SODIUM CHLORIDE 100 ML IV SCH (05:05)
[2018-12-17 05:10] VITALS: BP 120/83; TEMP 97.9
[2018-12-17] MEDS: HUMULIN R SUBCUT PRN (06:07)
[2018-12-17] MEDS ORDERED: PNEUMOVAX 23 IM ONE (07:48)
--- NOTE | 2018-12-17 08:08 | PCM.DC ---
Final Diagnosis: Peritonsillar abscess (Acute) Streptococcal sore throat (Acute) BMI 36.0-36.9,adult (Acute) Newly diagnosed diabetes (Acute) (1) Peritonsillar abscess Status: Acute Code(s): J36 - PERITONSILLAR ABSCESS SNOMED Code(s): 28164870 (2) Newly diagnosed diabetes Status: Acute Code(s): E11.9 - TYPE 2 DIABETES MELLITUS WITHOUT COMPLICATIONS SNOMED Code(s): 391095835, 198672982 (3) Streptococcal sore throat Status: Acute Code(s): J02.0 - STREPTOCOCCAL PHARYNGITIS SNOMED Code(s): 33557109 (4) BMI 36.0-36.9,adult Status: Acute Code(s): Z68.36 - BODY MASS INDEX (BMI) 36.0-36.9, ADULT SNOMED Code(s): 586192941 Reason for Hospitalization: 1. Peritonsillar abscess 2. Strep pharyngitis/tonsillitis 3. New onset diabetes Prognosis at Discharge: Good: Resolving peritonsilar abscess DM: New onset. Pending labs SHANA/Insulin and Cpeptide. Condition at Discharge: Improved and stable. Medications at Discharge: Ambulatory Orders Medication Instructions Recorded Amoxicillin/Potassium Clav 1 tab PO Q12HR 7 Days #14 tablet 12/17/18 [Augmentin 875-125 mg Tab] Blood Sugar Diagnostic [One Touch 1 each MC DAILY 30 Days #30 strip 12/17/18 Ultra Test Strips] Ertugliflozin Pidolate [Steglatro] 5 mg PO DAILY 30 Days #30 tablet 12/17/18 Insulin Glargine,Hum.rec.anlog 15 unit SQ DAILY 30 Days #3 12/17/18 [Basaglar Kwikpen U-100] insuln.pen Lancets [Bd Ultra-Fine II] 1 each MC DAILY 30 Days #30 each 12/17/18 Lancets [One Touch Delica] 1 each MC DAILY #1 each 12/17/18 Lancets [One Touch Lancets] 1 each MC DAILY 30 Days #30 each 12/17/18 Lancing Device/Lancets [One Touch 1 each MC DAILY 30 Days #1 kit 12/17/18 Delica Lancing Dev] Metformin HCl 500 - 1,000 mg PO DIRECTED 30 12/17/18 Days #60 tablet Pneumococcal 23-Fatou P-Sac Vac 0.5 ml IM .ONCE vial 12/17/18 [Pneumovax 23] Lab/Diagnostics: Laboratory Last Values WBC 12.11 K/ul (4.6-10.2) H D 12/17/18 05:00 RBC 4.54 10^6/ul (4.20-5.40) 12/17/18 05:00 Hgb 11.9 g/dl (12.0-16.0) L 12/17/18 05:00 Hct 36.7 % (37.0-47.0) L 12/17/18 05:00 MCV 80.8 fl (81.0-99.0) L 12/17/18 05:00 MCH 26.2 pg (27.0-31.0) L 12/17/18 05:00 MCHC 32.4 (31.8-35.4) 12/17/18 05:00 RDW Coeff of Dejan 13.0 % (11.6-14.8) 12/17/18 05:00 Plt Count 287 10^3/uL (140-440) 12/17/18 05:00 Immature Gran % (Auto) 1.1 % (0.0-5.0) 12/17/18 05:00 Neut % (Auto) 63.7 12/17/18 05:00 Lymph % (Auto) 27.9 (10.0-50.0) 12/17/18 05:00 [place] % (Auto) 5.5 (0-10) 12/17/18 05:00 Eos % (Auto) 1.5 % (0.0-7.0) 12/17/18 05:00 Baso % (Auto) 0.3 % (0.0-3.0) 12/17/18 05:00 Immature Gran # (Auto) 0.1 (0.0-1.0) 12/17/18 05:00 Neut # (Auto) 7.7 K/ul (2.0-6.9) H 12/17/18 05:00 Lymph # (Auto) 3.4 K/uL (0.60-3.4) 12/17/18 05:00 [place] # (Auto) 0.7 K/uL (0.4-2.0) 12/17/18 05:00 Eos # (Auto) 0.2 K/ul (0.0-0.7) 12/17/18 05:00 Baso # (Auto) 0.0 K/uL (0-0.2) 12/17/18 05:00 Sodium 138.1 mmol/L (134.5-145) 12/17/18 05:00 Potassium 3.93 mmol/L (3.5-5.1) 12/17/18 05:00 Chloride 102.7 mmol/L (98-107) 12/17/18 05:00 Carbon Dioxide 27.0 mmol/L (22-30.0) 12/17/18 05:00 Anion Gap 12.33 12/17/18 05:00 BUN 11.6 mg/dL (7-17) 12/17/18 05:00 Creatinine 0.41 mg/dL (0.60-1.30) L 12/17/18 05:00 Estimated GFR (MDRD) 183.00 mL/min 12/17/18 05:00 BUN/Creatinine Ratio 28.29 12/17/18 05:00 Glucose 313.1 mg/dL (74-106) H 12/17/18 05:00 Hemoglobin A1c 10.96 (4.0-6.0) H 12/15/18 20:45 Calcium 8.21 mg/dL (8.4-10.2) L 12/17/18 05:00 Total Bilirubin 0.61 mg/dL (0.2-1.3) 12/15/18 20:48 AST 27.9 U/L (14-36) 12/15/18 20:48 ALT 29.8 U/L (0-35) 12/15/18 20:48 Alkaline Phosphatase 110.5 U/L (38-126) 12/15/18 20:48 Total Protein 9.04 g/dL (6.3-8.2) H 12/15/18 20:48 Albumin 4.25 g/dL (3.5-5.0) 12/15/18 20:48 Globulin 4.79 12/15/18 20:48 Albumin/Globulin Ratio 0.88 12/15/18 20:48 Serum , Qual Negative (NEGATIVE) 12/15/18 20:48 Blood cultures negative Strep molecular + CT scan: Tonsillar swelling greatest on the left. There is central low density in the left palatine tonsil suggesting necrosis without rim enhancing abscess. Left parapharyngeal inflammation is present. Personally called radiology 1am: Image 31 axial:addendum: In anterior aspect of the left palataine tonsil 3.3 x 3.7 mm low density area with rim enhancement which could represent small abscess. Additional finding was discussed with ER physician at 0100 hours . That was actually with hospitalist and not ER provider. Pending: C peptide SHANA abs INsulin Education Provided to Patient and Family: 1. Education on augmentin/strep throat/tonsil abscess 2. Metformin education 3. Steglatro education 4. Basaglar education 5. Weight loss education 6. Diabetic diet education. 7. New onset diabetes education Follow-ups: 1. Dr. Diaz 12/21/18 08:00 Disposition: HOME SELF-CARE Hospital Course: 28 yo female walked into ER 20:10 12/15/18 with sore throat, fever, left ear ache , neck swelling, trouble swallowing. Febrile temp 100.6, pulse 100, rr 20, BP 136/94 supports SIRS and oropharyngeal infection supports Sepsis. Labs showed WBC 20.49, hgb 14.2, hct 42.7. Sodium 135.6, K+ 3.87, CL 98.1, c02 28.1. BUN 4.5 , cr 0.40 with glucose 300.5. ER note suggested patient did not meet SIRS/ Sepsis. Ear throat pain, strep was + in ER. PMHx polydipsia, polyphagia, polyuria. Never smoker. CT of the soft tissues of the neck suggested swelling of the pontin tonsils L>R. Low density changes centrally within the left palatine tonsils 1.1x1.3cm w/o rim enhancement. Tonsillar swelling fo the posterior nasopharynx. Epiglottis normal, trachea normal. Normal prevertebral soft tissues. Parapharyngeal fat shows stranding on left. reactive LN L>>R. normal parotid glands. Dr. Betancur contacted me at 23:20 and discussed the case with me. I asked about midline uvula was informed difficulty opening mouth, swelling, no stridor. I asked about parapharyngeal abscess/james and asked for opinon. I asked about the glucose, asked what the a1c was and was informed that the patient a1c was 10.96, glucose 300.5, negative. New onset diabetes. I asked more about the neck swelling as DM is most common predisposing factor for abscess. CT today did not show an air or fluid filled center. NO enhancement, no current evidence of abscess, but does have e/o cellulitic/infectious process. I discussed necrotizing fascitis, cellulitis as still possible. With strep + status Necrotizing facitis is concerning. I asked about platysma and was told there is some neck swelling. Again there are no current abscesses nor presence of gas within soft tissues. May re-image in 6- 12 hours if needed. Gas presence would suggest necrotizing fascitis. I asked about swelling and it was more invovled with the LN than the actual neck musculature and not along SCM (bezold). Ct did not support any mastoid/middle ear involvement nor of the musculature. She was given zosyn as well as NS 1000 cc bolus and 7 units of insulin. She was then set up to have lovenox 40subuct, rocephin 1 Gram daily, ms sulfate 2mg q 4hours, accucheck 0630,1100,1700,2100. I have added cpeptide, SHANA abs and insulin for am. Presented unable to open mouth. Steroids/abx did help her to open mouth and to talk. Boyfriend dale has garbled voice, tonsillar hypertrophy and pain as well. He has been gargling everclear due to the pain. Noted he probably had strep too. Patient tested +. She has swelling along the left side of the jaw. I have discussed with her at length that clinically and radiographically I was concerned about abscess/cellulitis. Blood cultures were collected. CT suggested initially no abscess, I reviewed images, talked with radiology and it was found to be + abscess small on left. Abx changed to unasyn 12/16/18 Patient improved, sugars remained ~300. Lantus 10 units daily given. She was also on correctional insulin, receiving 12/03///10/01 units. Labs looked great throughout the stay. Calcium dropped a little to 8.21. I will have her repeat CMP in 1 week. Will also have her eat yogurt, drink milk/cheese en lieu of extra medications. Steroids d/c. She noted pain was gone, tolerating PO. She had WBC reduced from 20.49 to 18.52. She had normal hgb 13.9, mcv is low at 79.5, RDW is normal. Plt are normal at 327. Chem panel showed normal sodium 138.2, normal cl 101.2, k+ 4.13, BUN 5.6, Cr 0.30. Glucose 333.1. Calcium 8.81. A1C returned 10.96. Temp since admit has been afebrile 97.6- 98.2. Pulse 70-86. BP has been stable at 119/85, 123/85, 130/82, 114/82. RR 16- 20. O2 98-100% on RA. NPO status, ended, she was on MARC/SCD for dvt prophy. She had SR/ST on telemetry. Accucheck for 12/16/18 265, 331,193, 212, 231. This am, day of d/c 12/17/18: labs showed wbc 12.11, hgb 11.9 mild anemia (REPEAT CBC in 1 week), plt 287. CMP sodium 138.1, K+ 3.93, BUN 11.6, Cr 0.41, glucose 313. Calcium a little low at 8.21. Vitals remained afebrile, pulse 70-86, rr 16 -18 and SR on tele. Sugars checked and similar to those above. She will be d/ c today with metformin + instructions, Glucometer/strips check fasting sugars daily write these down and bring me log, lancets/Device, Augmentin 875/125 BID x 7 days, Steglatro 5mg daily. Instructions on DM diet. She has appt with me on wednesday12/21/18 8 am, I have this set with my staff. Maximized hospitalzation at this time, no longer surgical. Uvula returned to midline, swelling reduced. Tolerating PO, ready for d/c Day of d/c Exam: Vital Signs - 24 hr 12/16/18 12/16/18 12/16/18 14:00 20:00 22:00 Temperature 98 F 98.1 F Pulse Rate 70 86 Respiratory 20 18 18 Rate Blood Pressure 130/82 114/82 O2 Sat by Pulse 100 98 Oximetry 12/17/18 05:09 Temperature 97.9 F Pulse Rate 80 Respiratory 16 Rate Blood Pressure 120/83 O2 Sat by Pulse 99 Oximetry Constitutional: Appearance-NO distress, pain not present continues to improve, fully opening of mouth, Consistent with stated age. Orientation- Oriented x 3, alert. Asleep on entry, easily awoken. Boyfriend dale in room. Build and Nutrition-[obese female] General- Patient is pleasant and cooperative with the interview and exam. Integumentary: General-No rashes, ulcers or lesions. Palpation- Normal skin moisture/turgor. Skin is warm to touch, appropriate. Capillary refill is normal bilateral Upper and lower extremity. Head/Neck: Neck- No longer has visible/palpable lumps lateral neck, along superior SCM, along lower angle of jaw within the anterior zone 2 space of the neck. This has resolved. No longer tender anterior cervical LN on left. This has not expanded. She appears to be healing/resolving. Palpation- No bony tenderness about head/neck along frontal, occipital, temporal, parietal, mastoid , jawline, zygoma, orbit or any other location. NO temporal artery tenderness. No TMJ tenderness. Neck Supple. NO trismus. Able to open mouth more today. ENMT: Nares- bilateral quiet airflow, no discharge. Nasal mucosa- No bleeding noted and no ulcerations observed. Gerald, moist. Turbinates non boggy. Lips- normal color, moist without cracks/lesions Oral Cavity/Palate- hard/soft palate intact without lesions, oral mucosa pink and moist. Dentition assessed avg, no obvious concerns, Tongue normal midline. Oropharynx- pharyngeal erythema markedly improved. Uvula midline, no longer displaced rightward, No post nasal drip. + tonsilar exudate resolving. Salivary glands- Non tender to palpation Parotid normal. Parotid ducts normal. CHEST/LUNG: Inspection- symmetric chest wall no pectus deformity. Normal effort , no distress, no use of accessory muscles. Palpation- nontender sternum, ribline. No abnormal pulsations. Auscultation- Breath sounds normal throughout all lung buckley. Normal tracheal sounds, Normal bronchial sounds overlying sternum, Bronchovessicular sounds normal between scapulae posteriorly, Normal vessicular breath sounds heard throughout periphery. Lungs are clear today. Adventitious sounds- No wheezes, rales, rhonchi. CARDIOVASCULAR: Palpation/Percussion- Normal PMI, no palpable thrill Auscultation- Regular rate and rhythm. No murmur noted in sitting, supine positions. Extremities- no digital clubbing, cyanosis, edema, increased warmth. ABDOMEN: Inspection- normal and no visible pulsations. Normal contour. Auscultation- Bowel sounds normal, no abdominal bruits. Palpation/Percussion- soft, non-tender, no rebound tenderness, no rigidity (guarding), no jar tenderness, no masses. Musculoskeletal: Generalized-No generalized swelling or edema of extremities, no digital clubbing or cyanosis, neurovascularly intact all four extremities. Neurological: General- Moves all 4 extremities symmetrically. Symmetrical face and body posture. Cranial nerves- individually evaluated II-XII and intact. PERRLA, Normal EOMI, visual/special senses appear intact, Face is symmetrical and normal sensation/movement, normal tongue, normal strength/posture of neck musculature. Neuropsych: Oriented- Person, place, time. (AAOx3), Mood/affect- normal and congruent. Able to articulate well. Speech-Normal speech, normal rate, normal tone, normal use of language, volume and coherence. Thought content- normal with ability to perform basic computations and apply abstract thought/reason. Associations- intact, no SI/HI, no hallucinations, delusions, obsessions. Judgment/insight- Appropriate. Memory-Recall intact, remote and recent memory intact. Knowledge- Age appropriate fund of knowledge, concentration and attention span normal. Lymphatic: Head/Neck- Left side anterior cervical LN enlarged but not tender to palpation and enlarged, zone 2. Decreased and nearly resolved swelling along level II, III, IV and 1B. . Axillary- normal size and non tender to palpation. Femoral and Inguinal- normal size and non tender to palpation. Plan: 1. Augmentin is prescribed for the next 7 days, please complete all 7 days. If you develop signs/symptoms of yeast infection please call my clinic and I will send a medication for you. (Itching/burning within vagina, thick white cottage cheese like discharge). 2. Remember antibiotics can make control less effective. Safe sex encouraged/Condoms. 3. New onset diabetes: - Metformin: Start with 500mg at bedtime x 1 week, then 500mg twice daily x 1 week, then 1/2 in am and 1 pm x 1 week, then 1 twice daily. - Steglatro: I have provided handout for this medication. It can cause headache, low sugars, increased thirst, weight loss, urinary tract infection and yeast infections. IF you develop signs/symptoms of yeast or urinary tract symptoms please let me know. - Basaglar: INsulin: 15 units of this insulin at night once daily. - Diabetic supplies sent to pharmacy: Glucose meter/Lancets/Strips. You need to purchase alcohol wipes. - Keep track of sugars on notebook paper and bring with you to your next appointment. - Pneumonia vaccine: Discussed risks/benefits to vaccination, reviewed components of the vaccine, discussed VIS, discussed informed consent, informed consent obtained. Patient was allowed to accept or refuse vaccine. Questions answered to satisfactory state of patient. We reviewed typical age appropriate and seasonally appropriate vaccinations. 4. Weight loss encouraged. 5. Please keep appointment with me Wednesday12/21/18 at 8 am. 6. Diet: Would focus on diabetic diet. Handout provided. 7. Activity: Resume normal >30 minutes spent on discharge today
[2018-12-17] MEDS ORDERED: PNEUMOVAX 23 ONE (10:02)
== END 2018-12-17 10:30 | disposition home or self-care (01) | DRG 153 ==
LOC: ED 20:01 → MEDSURG B 23:32
PROVIDERS: ADMIT Family Medicine; ATTEND Family Medicine
DX: J02.0 Streptococcal pharyngitis (principal); E11.9 Type 2 diabetes mellitus without complications; H92.02 Otalgia, left ear; R50.9 Fever, unspecified; R13.10 Dysphagia, unspecified; Z68.36 Body mass index [BMI] 36.0-36.9, adult
CPT/HCPCS: 36415; 80048; 80053; 82962; 83036; 83519; 83525; 84681; 84703; 85025; 87040; 87651; 96361; 96365; 96372; 96375; 99284

== ENCOUNTER 2018-12-21 10:12 | Outpatient (CLI) | END 2018-12-21 10:13 | disposition home or self-care (01) | LOC: RHC-LAB 10:12 → FCC-LAB 10:13 | PROVIDERS: ATTEND Family Medicine | DX: E11.9 Type 2 diabetes mellitus without complications (principal) | CPT/HCPCS: 82043 ==

== ENCOUNTER 2018-12-31 16:44 | Emergency (ER) ==
[2018-12-31 16:53] VITALS: BP 148/90; TEMP 99.8; BMI 34.9
--- NOTE | 2018-12-31 17:20 | ED.PDOC ---
General ED Provider: Dr. BINU PHILLIPS Chief Complaint: Sore Throat Stated Complaint: Patient was admitted last month for Pharyngial Abscess and Newly diagnosed Dm Type 2. States she has been taking her diabetic medications as prescibed. She states that she started having a sore throat yesterday worse today worried about having the same illness like last month. States that the blood glucose runs between 150-190. Time Seen by Physician: 17:10 Mode of Arrival: Walk-In Information Source: Patient Nursing and Triage Documentation Reviewed and Agree: Yes Does patient meet sepsis criteria?: No System Inflammatory Response Syndrome: Not Applicable Sepsis Protocol: For patient's 13 years and over: Temp is 96.8 and below OR 101 and greater Pulse >90 BPM Resp >20/minute Acutely Altered Mental Status Are patient's symptoms suggestive of a new infection, such as: -Pneumonia -Skin, Soft Tissue -Endocarditis -UTI -Bone, Joint Infection -Implantable Device -Acute Abdominal Infection -Wound Infection -Meningitis -Blood Stream Catheter Infection -Unknown Review of Systems - Review Of Systems Constitutional: Reports: Fever (low grade ) Eyes: Reports: No symptoms Ears, Nose, Mouth, Throat: Reports: Throat pain Respiratory: Reports: No symptoms Cardiac: Reports: No symptoms GI: Reports: No symptoms : Reports: No symptoms Musculoskeletal: Reports: No symptoms Skin: Reports: No symptoms Neurological: Reports: No symptoms Endocrine: Reports: No symptoms Hematologic/Lymphatic: Reports: No symptoms All Other Systems: Reviewed and Negative Past Medical History - Past Medical History Previously Healthy: Yes Endocrine: Reports: DM 2 (Diagnosed last month ) Cardiovascular: Reports: None Respiratory: Reports: None Hematological: Reports: None Gastrointestinal: Reports: None Genitourinary: Reports: None Neuro/Psych: Reports: None Musculoskeletal: Reports: None Cancer: Reports: None Last Menstrual Period: last month Other Pertinent Past Medical History: Obesity, Strep pharyngitis with abscess - Surgical History General Surgical History: Reports: None - Family History Family History: Reports: Diabetes - Social History Smoking Status: Never smoker Hx Substance Use: No Alcohol Screening: None Physical Exam - Physical Exam Appearance: Ill-appearing, Well-nourished, Obese Ill-appearing: Mild Pain Distress: Mild Eyes: GIOVANA, EOMI, Conjunctiva clear ENT: Erythema Neck: Nonsupple (Lynphadenopathy) Respiratory: Airway patent, Breath sounds clear, Breath sounds equal, Respirations nonlabored Cardiovascular: Pulses normal, No rub, No murmur, Tachycardia GI/: Soft, Nontender, No masses, Bowel sounds normal, No Organomegaly Musculoskeletal: Normal strength, ROM intact, No edema, No calf tenderness Skin: Warm, Dry, Normal color Neurological: Sensation intact, Motor intact, Alert, Oriented Psychiatric: Anxious Critical Care Note - Critical Care Note Total Time (mins): 0 Course - Course Hematology/Chemistry: 12/31/18 17:09 12/31/18 17:17 Orders, Labs, Meds: Orders Category Date Time Status CBC W/ AUTO DIFF Stat LAB 12/31/18 17:09 Ordered COMPREHENSIVE METABOLIC PANEL Stat LAB 12/31/18 17:09 Ordered MOLECULAR GROUP A STREP Stat LAB 12/31/18 17:09 Uncollected MONONUCLOSIS SCREEN Stat LAB 12/31/18 Ordered Vital Signs: Temp Pulse Resp BP Pulse Ox 12/31/18 16:45 99.8 F H 117 H 20 148/90 H 98 Departure - Departure Time of Disposition: 19:00 Disposition: HOME SELF-CARE Discharge Problem: Streptococcal sore throat Instructions: Pharyngitis (ED), Strep Throat (ED) Condition: Good Pt referred to PMD for follow-up: Yes IPMP verified?: No Additional Instructions: Follow up with ENT in 1-2 weeks continue home Medications for DM Allergies/Adverse Reactions: Allergies adhesive Adverse Reaction (Verified 12/31/18 16:53) Home Medications: Ambulatory Orders Blood Sugar Diagnostic [One Touch Ultra Test Strips] 1 each MC DAILY 30 Days # 30 strip 12/17/18 Lancets [Bd Ultra-Fine II] 1 each MC DAILY 30 Days #30 each 12/17/18 Lancets [One Touch Delica] 1 each MC DAILY #1 each 12/17/18 Lancets [One Touch Lancets] 1 each MC DAILY 30 Days #30 each 12/17/18 Lancing Device/Lancets [One Touch Delica Lancing Dev] 1 each MC DAILY 30 Days # 1 kit 12/17/18 Metformin HCl 500 - 1,000 mg PO DIRECTED 30 Days #60 tablet 12/17/18 Empaglifozin [Jardiance] 10 mg PO DAILY 12/31/18 Disposition Discussed With: Patient, Family
[2018-12-31] MEDS ORDERED: MOTRIN PO STA (17:28)
[2018-12-31] MEDS ORDERED: BICILLIN L-A IM STA (17:51)
== END 2018-12-31 19:05 | disposition home or self-care (01) ==
LOC: ED 16:44
DX: J02.0 Streptococcal pharyngitis (principal); E11.9 Type 2 diabetes mellitus without complications; Z79.899 Other long term (current) drug therapy
CPT/HCPCS: 36415; 80053; 83036; 85025; 85651; 86308; 87651; 96372; 99282